=== PATIENT | female | born 1980 | race American Indian/Alaskan Native ===

== ENCOUNTER 2017-04-23 14:09 | Emergency (ER) | payer MEDICAID, OTHER ==
[2017-04-23 14:51] VITALS: BP 168/92
[2017-04-23] MEDS ORDERED: NACL 0.9% 1000 ML 1,000 ML IV ONE (14:52)
[2017-04-23 15:21] LABS: Eosinophils # (Auto) 0.1 K/mm3 (0.0-0.4); Lymphocytes # (Auto) 1.7 K/mm3 (1.2-5.4); Lymphocytes % (Auto) 37.5 % (13.4-35.0); Mean Corpuscular HGB Conc 30 % (30-34); Monocytes # (Auto) 0.3 K/mm3 (0.0-0.8); Monocytes % (Auto) 6.5 % (0.0-7.3); Platelet Count 362 K/mm3 (140-440); Red Blood Count 4.72 M/mm3 (3.65-5.03)
[2017-04-23 15:26] LABS: Hematocrit 31.9 % (30.3-42.9); Hemoglobin 9.5 gm/dl (10.1-14.3); Mean Corpuscular Hemoglobin 20 pg (28-32); Mean Corpuscular Volume 68 fl (79-97); Red Cell Distribution Width 21.3 % (13.2-15.2)
[2017-04-23 15:29] LABS: INR 0.95 (0.87-1.13)
[2017-04-23 15:30] LABS: Partial Thromboplastin Time 28.1 Sec. (24.2-36.6)
[2017-04-23 15:34] LABS: Alanine Aminotransferase 8 units/L (7-56); Albumin 3.8 g/dL (3.9-5); BUN/Creatinine Ratio 13; Blood Urea Nitrogen 10 mg/dL (7-17); Calcium 8.8 mg/dL (8.4-10.2); Hemolysis Index 3; Lipase 32 units/L (13-60)
== END 2017-04-23 21:00 | disposition left against medical advice (07) ==
LOC: ED 14:09
DX: R10.9 Unspecified abdominal pain (principal); Z53.21 Procedure and treatment not carried out due to patient leaving prior to being seen by health care provider
CPT/HCPCS: 36415; 80053; 83690; 85025; 85610; 85730; 86850; 86900; 86901; 93005; 93010